=== PATIENT | male | born 1955 | race Caucasian/White ===

== ENCOUNTER → 2019-07-06 07:13 | Outpatient (CLI) | payer OTHER, SELFPAY ==
[2019-07-06 08:40] LABS: Hematocrit 41.5 % (41-53); Hemoglobin 14.1 g/dL (13.5-17.5); Mean Corpuscular Hemoglobin 32.9 PG (26-34); Mean Corpuscular Volume 96.6 fL (80-100); Platelet Count 197 X10^3/uL (150-400); Red Blood Cell Count 4.29 X10^6/uL (4.5-5.9); Red Cell Distribution Width 13.4 % (11.6-14.8); White Blood Cell Count 4.1 X10^3/uL (4.5-11.0)
[2019-07-06 08:59] LABS: Alanine Aminotransferase 31 IU/L (21-72); Albumin 4.9 g/dL (3.5-5.0); Albumin Globulin Ratio 1.7 (1.0-2.8); Alkaline Phosphatase 56 U/L (38-126); Aspartate Aminotransferase 41 IU/L (17-59); BUN Creatinine Ratio 21.1 (6-22); Bilirubin Total 0.9 mg/dL (0.2-1.3); Blood Urea Nitrogen 19 mg/dL (9-20); Carbon Dioxide 32 mmol/L (22-32); Chloride 94 mmol/L (98-107); Cholesterol 208 mg/dL (140-199); Estimated Glomerular Filt Rate > 60.0 mL/min (>60); Globulin 2.9 g/dL (1.7-4.1); Glucose 95 mg/dL (80-110); HDL Cholesterol 97 mg/dL (40-60); HEMOLYSIS < 15 (0-50); LDL Cholesterol Calculated 101 mg/dL (<100); Potassium 3.7 mmol/L (3.4-5.1); Sodium 138 mmol/L (137-145); Total Protein 7.8 g/dL (6.3-8.2); Triglycerides 49 mg/dL (35-150)
[2019-07-06 09:00] LABS: Neutrophils Absolute Manual 1722 /uL (3000-5900); RBC Morphology Normal Morphology; Total Cells Counted 100
[2019-07-06 09:30] LABS: TSH w/ Reflex to FT4 4.94 uIU/mL (0.47-4.68)
[2019-07-06 10:34] LABS: Free T4, Direct Thyroxine 0.97 ng/dL (0.78-2.19)
[2019-07-06 12:08] LABS: Creatinine Urine Random 83.2 mg/dL
[2019-07-06 12:10] LABS: Microalbumi Creatinin Ratio Ur 7.2 ug/mg CR (<30); Microalbumin Urine Random < 0.6 mg/dL (0-1.6)
== END ==
PROVIDERS: PCP Nurse Practitioner; Visit Provider Nurse Practitioner
DX: E78.00 Pure hypercholesterolemia, unspecified (principal); I10 Essential (primary) hypertension
CPT/HCPCS: 36415; 80053; 80061; 82043; 82570; 84153; 84439; 84443; 85025

== ENCOUNTER 2019-10-11 15:15 | Emergency (ER) | payer OTHER, SELFPAY ==
[2019-10-11 15:18] VITALS: BP 191/95; PULSE 68; RESP 20; TEMP 36.8; O2SAT 100
--- NOTE | 2019-10-11 19:18 | ED_ITS ---
HPI - Extremity Problem General Chief complaint: Extremity Problem,Nontraumatic Stated complaint: Swollen Right Knee, Suspected Staph Infection Time Seen by Provider: 10/11/19 17:26 Source: patient Mode of arrival: Ambulatory History of Present Illness HPI Narrative: The patient is a 63-year-old male who was sent to the emergency department by Dr. delcid because he was concerned that the patient had a septic right knee. The patient came to the emergency department and did not have a fall or injury. He has had a chronic rash and ulcers on his medial left leg with a yellow crusty discharge. The patient was questionably in [place] or [facility] and at the urging of a nonmedical friend started taking amoxicillin. He states that he has been working on a boat and kneeling doing multiple repairs when he developed swelling in the area of the right anterior patella. The patient was able to ambulate without difficulty and the knee. He denies any fever chills or sweats. He has had no chest pain cough shortness of breath difficulty in breathing nausea vomiting or diarrhea. He states that he wrapped his right knee with an Adebayo wrap and the swelling actually got worse. Related Data Home Medications Medication Instructions Recorded Confirmed potassium gluconate 550 mg (90 mg) 550 mg PO DAILY 07/07/19 07/07/19 tablet amlodipine [Norvasc] 5 mg PO DAILY 10/11/19 10/11/19 chlorthalidone 25 mg PO DAILY 10/11/19 10/11/19 lisinopril 40 mg PO DAILY 10/11/19 10/11/19 Previous Rx's Medication Instructions Recorded cephalexin 500 mg PO QID #30 tab 10/11/19 ibuprofen 600 mg PO QID PRN #30 tab 10/11/19 mupirocin calcium 1 applictn TOP BID #15 gram 10/11/19 sulfamethoxazole-trimethoprim 1 tab PO BID #14 tab 10/11/19 Allergies Allergy/AdvReac Type Severity Reaction Status Date / Time No Known Allergies Allergy Uncoded 07/07/19 09:39 Review of Systems Review of Systems Narrative: All review of systems were negative except for those mentioned in the history of present illness. Patient History Medical History Hearing loss (Chronic) Hypertension (Chronic) Lymphoma (Chronic ~2010) Vertigo (Chronic ~2017) Vision disorder (Chronic) Surgical History Anesthesia (Resolved) History of hernia repair (Resolved ~2010) Surgical procedure planned (Resolved ~2010) Family History Father Dementia History of heart disease Stroke Mother Hypertension Social History Smoking Status: Former smoker Smoking Status: Former smoker alcohol intake frequency: 3 or more drinks per day Exam Narrative Exam Narrative: PHYSICAL EXAM: CONSTITUTIONAL: Awake, Alert, Oriented, Coherent, Cooperative in NAD. Does not appear toxic or ill. HEAD: AT/NC EENT: PERRL, FROM of eyes, no discharge, no nystagmus SPINE: No gross deformity, no palpable tenderness of the cervical, thoracic, lumbar or sacral spine. No CVA tenderness. THORAX: No deformity, retractions, chest wall tenderness, subcutaneous air or crepitice. LUNGS: Clear with symmetrical breath sounds without respiratory distress HEART: Normal heart tones, regular rhythm and rate without murmur. ABDOMEN: Soft, non-tender, normal bowel sounds without guarding, rebound, rigidity or palpable mass or organomegaly. EXTREMITIES: The patient has full flexion of he has right knee. There is no tenderness to palpation over the medial or lateral joint line or popliteal fossa. The patient has a swelling of the patellar bursa with minimal erythema without warmth or tenderness. Over the medial left leg the patient has some very shallow ulcers with yellow brownish crusting consistent with impetigo. SKIN: No rash, bruising, petechiae or purpura. NEURO: Awake, alert, oriented, conversive, cranial nerves II-XII are symmetrical and normal, moves all 4 extremities and is ambulatory Initial Vital Signs Initial Vital Signs: Vital Signs Temperature 98.2 F 10/11/19 15:18 Pulse Rate 68 10/11/19 15:18 Respiratory Rate 20 10/11/19 15:18 Blood Pressure 191/95 H 10/11/19 15:18 Pulse Oximetry 100 10/11/19 15:18 Course Course Course Narrative: The patient has a patellar bursitis which got worse wrapping it with an Adebayo wrap. The erythema is mild and is not warm hot and tender. The patient was treated as though he has a right patellar bursitis. It is unknown if he really did have a an infection and how much it was treated with 3 days of amoxicillin. Consequently the patient was placed on Keflex 500 mg q.i.d. and Bactrim double strength since he has a history of impetigo on the other leg. He was given a prescription for mupirocin cream to apply 2-3 times over the rash on the left leg. He was given a prescription for ibuprofen. There were no need for any x-rays of the knee because he had full flexion extension and was able to ambulate without difficulty. He has had no fever chills or sweats. Vital Signs Vital signs: Vital Signs - 8 hr 10/11/19 15:18 Temperature 98.2 F Pulse Rate 68 Respiratory Rate 20 Blood Pressure 191/95 H Pulse Oximetry 100 Discharge Plan Departure Patient Disposition: Home Clinical Impression: Bursitis of right patella, Impetigo Discharge Date/Time: 10/11/19 18:00 Instructions: DI for Bursitis, DI for Impetigo Activity Restrictions/Additional Instructions: Look up patellar bursitis, milk made the knees and impetigo on the Internet. Do not wrap the knee with an Adebayo wrap for put pressure on the knee. The swelling will probably last for 3-4 weeks. If it becomes red like a piece of beef hot and exquisitely tender you needs to be re-examined. You have developed a protective collection of fluid on your knee from working in kneeling on your knees. Since you started amoxicillin 4 days ago you need to take the antibiotics, Keflex 500 mg 4 times a day and Bactrim 500 mg b.i.d. for the next 7 days. You can apply mupirocin cream to the shallow ulcers and skin breakdown topically 2 to 3 times a day to the left leg. Follow-up and be recheck by your family physician in 3-4 days. For any pain and discomfort you can use ibuprofen 600 mg every 6 hours. Prescriptions: New mupirocin calcium 2 % cream 1 applictn TOP BID Qty: 15 RF: 0 ibuprofen 600 mg tablet 600 mg PO QID PRN (Reason: pain) Qty: 30 RF: 0 cephalexin 500 mg tablet 500 mg PO QID Qty: 30 RF: 0 sulfamethoxazole-trimethoprim 800-160 mg tablet 1 tab PO BID Qty: 14 RF: 0 No Action potassium gluconate 550 mg (90 mg) tablet 550 mg PO DAILY RF: 0 lisinopril 20 mg tablet 40 mg PO DAILY RF: 0 chlorthalidone 25 mg tablet 25 mg PO DAILY RF: 0 amlodipine [Norvasc] 5 mg tablet 5 mg PO DAILY RF: 0 Referrals: Britta Delcid ARNP [Primary Care Provider] -
== END 2019-10-11 18:00 | disposition home or self-care (01) ==
PROVIDERS: Emergency Provider Emergency Medicine; PCP Nurse Practitioner
DX: M70.51 Other bursitis of knee, right knee (principal); L01.00 Impetigo, unspecified
CPT/HCPCS: 99281; 99283

== ENCOUNTER → 2020-05-23 09:37 | Outpatient (CLI) | payer OTHER, SELFPAY ==
--- NOTE | 2020-05-23 09:39 | DI.RAD.S_ITS ---
PROCEDURE: XR CHEST 2V INDICATIONS: Hodgkin's disease TECHNIQUE: 2 views of the chest were acquired. COMPARISON: [facility], CHEST 2 VIEW, 05/20/2012, 15:41. [facility], CHEST 2 VIEW, 12/26/2017, 13:16. FINDINGS: Surgical changes and devices: None. No acute consolidation. Ill-defined subcentimeter nodular opacities projecting in the left lung base, indeterminate although slightly more conspicuous since the prior study. No pleural effusions or pneumothorax. Mediastinum: Mediastinal contours are normal. Heart size is normal. Bones and chest wall: No suspicious bony abnormalities. Soft tissues appear unremarkable. IMPRESSION: No acute consolidation Vague subcentimeter nodular opacities projecting the left lung base which are indeterminate. If clinically warranted, this could be followed up with short interval chest radiographs or CT to exclude early pulmonary nodules, depending on clinical suspicion Dictated by: Abran Man M.D. on 05/23/2020 at 11:24 Approved by: Abran Man M.D. on 05/23/2020 at 11:27
--- NOTE | 2020-05-23 09:39 | DI.US.S_ITS ---
PROCEDURE: US SCROTUM INDICATIONS: Right Hydrocele TECHNIQUE: Real-time scanning was performed of the scrotum and testicles, with image documentation. Color and pulse Doppler interrogation was performed of both testicles. COMPARISON: None. FINDINGS: Right: Testicle is normal in size at 4.5 x 2.4 x 3.5 cm, and homogenous in echotexture. Epididymis is normal in overall size and morphology. Moderate hydrocele. No varicocele. Overlying scrotal skin is normal in thickness. Left: Testicle is normal in size at 4.1 x 2.3 x 3.3 cm, and homogeneous in echotexture. Epididymis is normal in overall size and morphology. 2 epididymal cysts, largest measuring up to 2.1 cm. Moderate hydrocele. No varicocele. Overlying scrotal skin is normal in thickness. Doppler: Color and pulse Doppler demonstrate normal and symmetric arterial flow in both testicles. IMPRESSION: 1. Normal appearance of the testicles bilaterally. 2. Moderate bilateral hydroceles. 3. Left epididymal cysts. Dictated by: Manuel Lindquist [facility] Interpreted: Micheline Cabral MD on 05/23/2020 at 11:08 Approved by: Micheline Cabral M.D. on 05/23/2020 at 12:43
== END ==
PROVIDERS: PCP Internal Medicine; Referring Provider Internal Medicine; Visit Provider Internal Medicine
DX: C81.90 Hodgkin lymphoma, unspecified, unspecified site (principal); N43.3 Hydrocele, unspecified; N50.3 Cyst of epididymis
CPT/HCPCS: 71046; 76870

== ENCOUNTER → 2020-07-14 10:14 | Outpatient (CLI) | payer OTHER, SELFPAY ==
[2020-07-14 11:59] LABS: Erythrocyte Sedimentation Rate 4 MM/HR (0-15)
[2020-07-14 12:16] LABS: Alanine Aminotransferase 18 IU/L (<50); Albumin 4.3 g/dL (3.5-5.0); Albumin Globulin Ratio 1.4 (1.0-2.8); Alkaline Phosphatase 69 U/L (38-126); Aspartate Aminotransferase 26 IU/L (17-59); BUN Creatinine Ratio 16.3 (6-22); Bilirubin Total 1.1 mg/dL (0.2-1.3); Blood Urea Nitrogen 15 mg/dL (9-20); Calcium 9.9 mg/dL (8.4-10.2); Carbon Dioxide 32 mmol/L (22-32); Chloride 100 mmol/L (98-107); Cholesterol 175 mg/dL (140-199); Estimated Glomerular Filt Rate > 60.0 mL/min (>60); Glucose 109 mg/dL (80-110); HDL Cholesterol 88 mg/dL (40-60); LDL Cholesterol Calculated 76 mg/dL (<100); Potassium 4.3 mmol/L (3.4-5.1); Sodium 137 mmol/L (137-145); Total Protein 7.3 g/dL (6.3-8.2); Triglycerides 56 mg/dL (35-150)
[2020-07-14 12:24] LABS: C-Reactive Protein Quant < 0.5 mg/dL (<1.0)
[2020-07-14 12:46] LABS: HEMOLYSIS < 15 (0-50); Prostate Specific Antigen Scrn 0.555 ng/mL (0.1-4.0)
== END ==
PROVIDERS: PCP Internal Medicine; Referring Provider Internal Medicine; Visit Provider Internal Medicine
DX: C81.90 Hodgkin lymphoma, unspecified, unspecified site (principal); E78.00 Pure hypercholesterolemia, unspecified; I10 Essential (primary) hypertension; R73.9 Hyperglycemia, unspecified; Z12.5 Encounter for screening for malignant neoplasm of prostate
CPT/HCPCS: 36415; 80053; 80061; 85651; 86140; G0103

== ENCOUNTER → 2020-08-23 09:42 | Outpatient (CLI) | payer OTHER, SELFPAY ==
[2020-08-23 10:43] LABS: COVID19 -Nasal RAPID Negative (Negative)
== END ==
PROVIDERS: PCP Internal Medicine; Visit Provider Specialist
DX: Z01.812 Encounter for preprocedural laboratory examination (principal); Z20.828 Contact with and (suspected) exposure to other viral communicable diseases
CPT/HCPCS: 87635; C9803

== ENCOUNTER 2020-08-25 06:40 | Day surgery (SDC) | payer OTHER, SELFPAY ==
[2020-08-23 08:27] VITALS: BMI 27.6
[2020-08-25] VITALS (7 sets, daily range): BP systolic 161–196; BP diastolic 90–98; PULSE 77–94; RESP 10–16; TEMP 36.3–37; O2SAT 96–99; BMI 28.0
[2020-08-25] MEDS: LACTATED RINGERS 1,000 ML 42 ML IV (07:22)
--- NOTE | 2020-08-25 07:38 | PM.PREOP ---
Pre-operative Note Interval Note History & Physical reviewed/Exam performed by Physician: Yes Changes to H&P: No
[2020-08-25] MEDS: CEFAZOLIN 2 GM/100 ML FROZ.PIGGY IV (07:54)
--- NOTE | 2020-08-25 08:18 | SUR.OPER ---
Supine on padded OR bed, head on pillow, arms secured on padded arm boards at <90 degrees abduction, legs uncrossed, safety belt at thigh, tape over blanket over lower legs.
[2020-08-25] MEDS: BUPIVACAINE LIPOSOME 266 MG/20 ML VIAL INJ (08:26)
[2020-08-25] MEDS: SODIUM CHLORIDE 0.9% FLUSH 10 ML IV (08:26)
[2020-08-25] MEDS: NEOMYCIN/POLYMYXIN/BACITRA UD OINT 1 EACH TOP (08:38)
--- NOTE | 2020-08-25 09:02 | PM.OP.1 ---
Operative Date/Time/Diagnoses Date of procedure: 08/25/20 Time of procedure: 09:02 Pre-op diagnosis: Right hydrocele Post-op diagnosis: same Procedure & Clinicians Procedure: Right hydrocelectomy Same procedure as scheduled: Yes Indications: Right hydrocele Surgeon: Katty Millan Click Yes if Unassisted: Yes Anesthesia Type: General and Local (1.33% Exparel) Operative Notes Findings: 1. Normal scrotal wall tissue planes. 2. Simple hydrocele sac with randy/straw colored fluid. 3. A small scrotal zach was removed. Closure Type: primary Specimen(s): none sent Applied: other (Ten Ecu[place] fenestrated scrotal drain) Estimated Blood Loss (mL): 2 Blood products transfused: none Tourniquet time (min): 0 Procedure in detail: The patient was positioned supine was administered general anesthesia. The lower abdomen, genitalia, and groin were then prepped and draped in sterile fashion. Local anesthetic was used to infiltrate the midline scrotal Fe. The needlepoint cautery was then used to create an incision in the midline scrotal raphae through the skin and subcutaneous dartos fascia to the level of the tunica vaginalis. The appropriate plane was then developed on the surfaces tunica vaginalis in the entire structure was delivered from the right hemiscrotum. The tunica vaginalis was then divided longitudinally in the midline anteriorly. The fluid contents and per were then removed. The edges of the tunica vaginalis were then reflected posteriorly (books salesperson). Using 2 0 Monocryl, a running horizontal mattress reapproximation of the tunica vaginalis posteriorly was accomplished. Additional stay suture inferiorly and superiorly were were placed against the posterior scrotal wall for anatomic repositioned the testis and cord. The cord was then infiltrated with local anesthetic. A site inferior and lateral in the right hemiscrotum was also infiltrated local anesthetic. Through this a 10 Ecuadorean Kerwin drain was positioned appropriately and was secured at the level of skin with a 2-0 silk suture. The distal tip was trimmed to appropriate length and positioned appropriately within the right hemiscrotum. Next, local anesthetic was used to infiltrate the dartos fascia of the midline incision. A dartos fascia was then closed with a running vertical mattress of 2-0 Monocryl. The skin edges were then reapproximated using a running horizontal mattress of 4-0 Monocryl. Antibiotic ointment was applied to the incision line and dry fluffs applied over that. The patient was then fitted with a athletic supporter and the drain was placed to bulb self suction. The patient was then awakened, transferred to [facility], and transferred recovery room in stable condition. Complications: none Post-operative Condition: stable Disposition: PACU Plan for aftercare: Discharge home
[2020-08-25] MEDS: OXYCODONE/ACETAMINOPHEN 5/325 TABLET 1 TAB PO (09:31)
[2020-08-25] MEDS: ONDANSETRON 4 MG/2 ML INJ IV (09:31)
--- NOTE | 2020-08-25 11:23 | SUR.PHASEII ---
Discharge instructions provided to pt and his re surgery as well as care of jesika drain, recording output and emptying drain. Pt was able to urinate prior to d/c. Left with all his belongings. Rx sent to pharmacy and to [facility]. to car with in w/c with RN escort.
== END 2020-08-25 10:55 | disposition home or self-care (01) ==
PROVIDERS: PCP Internal Medicine; Referring Provider Internal Medicine; Visit Provider Specialist
PROC: (CPT 55040; principal; 2020-08-25 07:45)
DX: N43.3 Hydrocele, unspecified (principal); I10 Essential (primary) hypertension
CPT/HCPCS: 55040; C9290; J0690; J1100; J2250; J2405; J2704; J3010

== ENCOUNTER → 2020-11-28 11:11 | Outpatient (CLI) | payer OTHER, SELFPAY ==
[2020-11-28 12:26] LABS: BUN Creatinine Ratio 18.6 (6-22); Blood Urea Nitrogen 18 mg/dL (9-20); Carbon Dioxide 32 mmol/L (22-32); Chloride 96 mmol/L (98-107); Estimated Glomerular Filt Rate > 60.0 mL/min (>60); Glucose 108 mg/dL (80-110); HEMOLYSIS < 15 (0-50); Magnesium 2.1 mg/dL (1.6-2.3); Potassium 3.4 mmol/L (3.4-5.1); Sodium 134 mmol/L (137-145)
== END ==
PROVIDERS: PCP Internal Medicine; Referring Provider Internal Medicine; Visit Provider Internal Medicine
DX: I10 Essential (primary) hypertension (principal)
CPT/HCPCS: 36415; 80048; 83735

== ENCOUNTER → 2021-01-02 14:38 | Outpatient (CLI) | payer OTHER, SELFPAY ==
--- NOTE | 2021-01-02 14:39 | DI.US.S_ITS ---
PROCEDURE: US SCROTUM INDICATIONS: Hydrocele resected approximately 6 months ago with persistent asymmetric right greater than left prominence of the scrotal dimensions. TECHNIQUE: Real-time scanning was performed of the scrotum and testicles, with image documentation. Color and pulse Doppler interrogation was performed of both testicles. COMPARISON: [facility], , US SCROTUM, 05/23/2020, 10:10. FINDINGS: Right: Testicle is normal in size at 2.2 x 2.6 x 4.4 cm, and homogenous in echotexture. Epididymis is normal in overall size and morphology. No right-sided hydrocele but there is a small right-sided varicocele. Scrotal wall thickness is approximately 6-7 mm, without hyperemia. What appears to be the spermatic cord on the right is mildly prominent. No definite hernia is present as cause of this appearance. Left: Testicle is normal in size at 2.3 by 3.2 by 4.1 cm, and homogeneous in echotexture. Epididymis is normal in overall size and morphology. Small left-sided varicocele and there is a left-sided hydrocele that measures up to 6.6 cm by 3.8 cm. Scrotal wall thickness is approximately 5-6 mm, without hyperemia. As was seen on the right there is a small degree of prominence of the left spermatic cord. No definite hernia extending into the scrotum is seen on the left either.. Doppler: Color and pulse Doppler demonstrate normal and symmetric arterial flow in both testicles. IMPRESSION: No sign of testicular torsion. No hyperemia involving the testicles or epididymis. Reported prior hydrocele resection, and the prior scrotal ultrasound 05/23/20 had identified moderate bilateral hydroceles. The right-sided hydrocele has resolved, a left-sided hydrocele is present measuring up to 6.6 x 3.8 cm. Mild prominence of the spermatic cords bilaterally, right greater than left. Mild edema is the likely cause. No inguinal herniation is found as cause of this appearance. Dictated by: Jose Tavera M.D. on 01/03/2021 at 10:06 Approved by: Jose Tavera M.D. on 01/03/2021 at 10:21
== END ==
PROVIDERS: PCP Internal Medicine; Referring Provider Specialist; Visit Provider Specialist
DX: N43.3 Hydrocele, unspecified (principal)
CPT/HCPCS: 76870

== ENCOUNTER → 2021-01-29 12:35 | Outpatient (CLI) | payer OTHER, SELFPAY ==
[2021-01-29 13:35] LABS: BUN Creatinine Ratio 17.3 (6-22); Blood Urea Nitrogen 18 mg/dL (9-20); Calcium 10.6 mg/dL (8.4-10.2); Carbon Dioxide 30 mmol/L (22-32); Chloride 96 mmol/L (98-107); Estimated Glomerular Filt Rate > 60.0 mL/min (>60); Glucose 105 mg/dL (80-110); HEMOLYSIS < 15 (0-50); Potassium 3.5 mmol/L (3.4-5.1); Sodium 133 mmol/L (137-145)
== END ==
PROVIDERS: PCP Internal Medicine; Referring Provider Specialist; Visit Provider Specialist
DX: N43.3 Hydrocele, unspecified (principal)
CPT/HCPCS: 36415; 80048

== ENCOUNTER → 2021-02-05 07:31 | Outpatient (CLI) | payer OTHER, SELFPAY ==
--- NOTE | 2021-02-05 08:04 | DI.CT.S_ITS ---
PROCEDURE: CT PELVIS W CON INDICATIONS: herina TECHNIQUE: After the administration of oral contrast and intravenous contrast, 5 mm thick sections acquired from the iliac crests to the symphysis. 5 mm thick coronal and sagittal reformats were acquired. For radiation dose reduction, the following was used: automated exposure control, adjustment of mA and/or kV according to patient size. COMPARISON: None. FINDINGS: Image quality: Excellent. Peritoneum and bowel: Contrast enhanced bowel loops demonstrate normal wall thickness and caliber. Occasional sigmoid colon diverticulosis without acute diverticulitis. No free fluid or air. Genitourinary: Bladder wall thickness is normal. 6.6 cm right renal cyst Nodes and vessels: No iliac, pelvic, or inguinal adenopathy. Iliac vessels demonstrate normal size and enhancement. Bones: There is a small bone lesion in the left posterior ilium measuring 2.3 cm with morphology suggesting an enchondroma. Degenerative change at the L5-S1 disc level. Miscellaneous: There is a moderate size, fat containing indirect right inguinal hernia. The diameter of the internal ring is approximately 3.6 cm. The right testicle is medially displaced. There is a small left fat containing inguinal hernia and small left hydrocele. No other visible ventral hernias. IMPRESSION: 1. Moderate-size fat containing right inguinal hernia. No associated changes to suggest incarceration or bowel involvement. 2. Small left fat containing inguinal hernia and small left hydrocele. 3. Other incidental findings described above. Dictated by: Micheline Cabral M.D. on 02/05/2021 at 11:22 Approved by: Micheline Cabral M.D. on 02/05/2021 at 11:28
== END ==
PROVIDERS: PCP Internal Medicine; Referring Provider Specialist; Visit Provider Specialist
DX: N43.3 Hydrocele, unspecified (principal); K40.20 Bilateral inguinal hernia, without obstruction or gangrene, not specified as recurrent
CPT/HCPCS: 72193; Q9967

== ENCOUNTER → 2021-02-23 11:09 | Outpatient (CLI) | payer OTHER, SELFPAY ==
[2021-02-23] MEDS: COVID-19 VACC, Ad26(JANSSEN)/PF 0.5 ML IM (11:17)
== END ==
PROVIDERS: PCP Internal Medicine; Visit Provider Internal Medicine
DX: Z23 Encounter for immunization (principal)
CPT/HCPCS: 0031A; 91303

== ENCOUNTER → 2021-04-16 10:08 | Outpatient (CLI) | payer OTHER, SELFPAY ==
[2021-04-16 12:48] LABS: COVID19 -Nasal RAPID Negative (Negative)
== END ==
PROVIDERS: PCP Internal Medicine; Visit Provider Surgery
DX: Z20.822 Contact with and (suspected) exposure to COVID-19 (principal)
CPT/HCPCS: 87635; C9803

== ENCOUNTER 2021-04-17 06:43 | Day surgery (SDC) | payer OTHER, SELFPAY ==
[2021-04-11 10:32] VITALS: BMI 29.0
[2021-04-17] VITALS (13 sets, daily range): BP systolic 115–157; BP diastolic 55–84; PULSE 83–99; RESP 14–18; TEMP 36.2–36.7; O2SAT 91–100; BMI 30.2; BMI 29.7
[2021-04-17] MEDS: LACTATED RINGERS 1,000 ML 100 ML IV ×2 (07:14→09:12)
[2021-04-17] MEDS: ACETAMINOPHEN 325 MG TABLET 975 MG PO (07:27)
[2021-04-17] MEDS: GABAPENTIN 300 MG CAPSULE PO (07:28)
--- NOTE | 2021-04-17 07:30 | PM.PREOP ---
Pre-operative Note Interval Note History & Physical reviewed/Exam performed by Physician: Yes Changes to H&P: No
[2021-04-17] MEDS: CEFAZOLIN 1 GM VIAL 2 GM IV (08:00)
--- NOTE | 2021-04-17 08:07 | SUR.OPER ---
Supine on padded OR bed, head on pillow, arms secured on padded arm boards at <90 degrees abduction, legs uncrossed, gel pad under heels, safety belt at thigh, tape over blanket over lower legs.
[2021-04-17] MEDS: BUPIVACAINE 0.25% (PF) VIAL 30 ML INJ (08:15)
[2021-04-17] MEDS: OXYCODONE IR 5 MG TABLET PO ×2 (10:34→11:10)
--- NOTE | 2021-04-17 10:40 | SUR.PHASEI ---
Assumed care of pt from Madina Roth RN.
--- NOTE | 2021-04-17 11:19 | PM.OP.1 ---
Operative Date/Time/Diagnoses Date of procedure: 04/17/21 Time of procedure: 11:19 Pre-op diagnosis: Bilateral inguinal hernia Post-op diagnosis: same Procedure & Clinicians Procedure: Open bilateral inguinal hernia with mesh Same procedure as scheduled: Yes Indications: Reducible bilateral inguinal hernia Surgeon: Jasiel Mae Operative Notes Findings: Right-direct floor defect and large indirect hernia with intestinal content extending into the scrotum Left-direct floor defect, small indirect hernia containing omentum Specimen(s): none sent Estimated Blood Loss (mL): 40 Procedure in detail: The patient was placed supine on the table and bilateral lower extremity compression devices were applied. Anesthesia was induced they were intubated with an LMA and received 2g of Ancef. A time-out was performed. They were prepped and draped in sterile fashion. The right external inguinal ring and the anterior superior iliac crest were identified and marked. 1 finger breath above the inguinal ligament the skin was infiltrated with 0.25% bupivacaine. The skin incision was made here and the subcutaneous tissues were divided with electrocautery exposing the external oblique aponeurosis which was then opened along the direction of its fibers. Using blunt dissection the internal oblique aporneurosis was from the external oblique upper leaflet. The cord was carefully dissected away from the inguinal canal adjacent to the pubic tubercle. The cord including the vas deferens, testicular bloody supply, ilioguinal and genital nerve were encircled with a [place] drain. A direct floor defect was identified and it was reduced into the abdomen and the internal oblique aporneuorsis was approximated to the inguinal ligament with Ethibond suture to reapproximate the floor. The cremasteric fibers surrounding the cord were divided using electrocautery adjacent to the internal ring.. The vas deferens and the testicular vessels were preserved and protected. There was a large indirect hernia which was skeletonized away from the vas deferens and testicular blood supply. The indirect hernia sac was opened contained omentum and viable small bowel. The hernia sac was closed with vicryl suture and reduced back into the abdomen. A plug of mesh was placed into the internal ring and suture to the fascia. I selected a 7x 15 cm lightweight Pro Loop hernia mesh. The inferior medial aspect of the mesh was anchored to insertion of the rectus muscle to the pubic tubercle such that there was approximately 2 cm of tubercle overlap with Ethibond and then was run continuously along the inferior edge of the mesh to the shelving edge of the inguinal ligament. Interrupted 3 0 Vicryl suture was used to anchor the superior aspect of the mesh to the conjoined tendon in several places. The tails were then reapproximated loosely around the spermatic cord. The tails of the mesh were then tucked under the external oblique aponeurosis. The repair was checked for hemostasis. The wound was irrigated with sterile saline. The external oblique aponeurosis was reapproximated in a running fashion using 3 0 Vicryl. The subcutaneous tissues were reapproximated with 3 0 Vicryl skin closed with 4 0 Monocryl followed by the application of Dermabond. The left side was then approached in the same fashion. On the left, both a direct floor defect and a small indirect hernia containing only omentum was found. At the end of the operation I ensured that both testicles were within the scrotum. The sponge instrument count at the end operation was correct. The patient emerged from anesthesia was extubated and transferred to the postoperative care unit in stable condition. A total of 30 ml of of 0.25% bupivicaine was used to infiltrate the skin. Complications: none Post-operative Condition: stable Disposition: same day surgery
--- NOTE | 2021-04-17 12:02 | SUR.PHASEII ---
1140 Patient dressed, tolerating po intake, pain level improving, sites CDI. Attempted to stand at bedside to transfer to wheelchair. Legs weak and unable to support his weight. Patient returned to the bed and called to postpone pickup. Otherwise stable. Will reassess patient for LE stability after a period of time.
--- NOTE | 2021-04-17 12:36 | SUR.PHASEII ---
1230 Attempted to stand at the bedside, knees buckled. Patient returned to bed with call light available. States that he feels like he has vertigo. Circulating nurse informed and was asked to share this with Dr. Mae.
--- NOTE | 2021-04-17 13:06 | SUR.PHASEII ---
Addendum entered by Sofia Landon R.N. 04/17/21 17:13: after holding pt for several hours, pt is still showing signs of instability on the RLE. Transfer is pending to room 227 for observation. Addendum entered by Sofia Landon R.N. 04/17/21 13:48: Pt up to side of bed with the aid of walker. Some increase in mobility to R knee and leg, but still unstable as pt tried to move to sit and almost missed the gurney. He was assisted back to bed and encourged to continue knee bending and ankle waving to BLE Original Note: Pt stood at the bedside with the use of a walker. He was able to march in place while being stabilized with the walker. Pt reports R leg weaker than the L at the knee only. States thighs and toes both have feeling. Continue to monitor. Encouraged knee bending and ankle waves while in bed.
--- NOTE | 2021-04-17 19:47 | PC.NURSE ---
Admit Note Pt arrived to room 227 at 1750 via wheelchair, SBA with FWW to bed. Numbness persisting to right side, right leg still buckling when pt attempts to put weight on it. Per Dr. Mae, pt can discharge home if numbness/buckling resolves (call MD to receive D/C orders). Pt denies pain. Declines IV access at this time, I'm hoping to go home later and don't want to be poked again. Incision sites D/I, steri-strips in place. Ice in place over incisions per pt request. Oriented to room and to call light/bed/tv controls. Belongings at bedside including cell phone and clothing. Declines to lock up any valuables.
[2021-04-18] MEDS: ACETAMINOPHEN 325 MG TABLET 650 MG PO (01:43)
[2021-04-18] MEDS: OXYCODONE IR 5 MG TABLET PO ×2 (01:44→08:08)
[2021-04-18 02:01] VITALS: BP 146/83; PULSE 92; RESP 18; TEMP 36.4; O2SAT 97
[2021-04-18 08:00] VITALS: BP 139/82; PULSE 88; RESP 17; TEMP 36.4; O2SAT 99
--- NOTE | 2021-04-18 09:42 | PC.NURSE ---
Provided written and verbal instruction/education regarding post op care, medications, s/s of infection, when to seek emergency medical treatment, wound care, activity limitations. Instructed pt to keep f/u appt as scheduled and provided him with date/time. Reviewed med regimen including next dose due and instructed pt that his Rx was electronically sent to [facility]. Pt declined to take his amlodipine prior to discharge stating he will take when he gets home. Pain was well controlled on PO oxycodone at time of discharge. Pt was able to dress himself independently and walk in the room without need for AD. Pt was escorted to POV via w/c by [employer] with all belongings.
--- NOTE | 2021-04-18 11:46 | CM.DANOTE ---
DCP: Case received, EMR reviewed and met with patient. Introduced self and role. Was able to obtain information from patient regarding his baseline activity status prior to hospitalization. DCP assessment completed with information currently available. Patient is a 65 year old male who admitted yesterday morning to the care of the surgical team. PCP: Dr. Ridley. Payer: confirmed: [employer]. Patient came to the hospital via private vehicle for a surgical procedure. He had open bilateral inguinal hernia repair. Met with patient in his room. He is alert and oriented. Confirmed that he is independent, and resides with his here [facility]. He is retired, and confirmed that Dr. Ridley is his primary provider. P: Patient is discharging home today with no needs. Ciara Myers RN/Specification Writer
== END 2021-04-18 09:30 | disposition home or self-care (01) ==
LOC: OR 17:51 → ICU 17:52
PROVIDERS: PCP Internal Medicine; Referring Provider Surgery; Visit Provider Surgery
PROC: (CPT 49505; principal; 2021-04-17 07:45)
DX: K40.20 Bilateral inguinal hernia, without obstruction or gangrene, not specified as recurrent (principal); I10 Essential (primary) hypertension; N43.3 Hydrocele, unspecified
CPT/HCPCS: 49505; 82962; C1781; J0690

== ENCOUNTER → 2021-08-22 15:08 | Outpatient (CLI) | payer OTHER, SELFPAY ==
[2021-05-17 09:16] VITALS: BMI 29.7
[2021-08-22 15:52] LABS: Urine Drug scr, USCG NIDA See Separate Report
== END ==
PROVIDERS: PCP Internal Medicine; Referring Provider Internal Medicine; Visit Provider Internal Medicine
DX: Z02.89 Encounter for other administrative examinations (principal)
CPT/HCPCS: 81099

== ENCOUNTER → 2022-04-15 14:57 | Outpatient (CLI) | payer OTHER, SELFPAY ==
[2021-05-17 09:16] VITALS: BMI 29.7
[2022-04-15 15:53] LABS: Cholesterol 180 mg/dL (140-199); HDL Cholesterol 74 mg/dL (40-60); LDL Cholesterol Calculated 84 mg/dL (<100); Triglycerides 109 mg/dL (35-150)
[2022-04-15 16:21] LABS: Prostate Specific Antigen Scrn 0.962 ng/mL (0.1-4.0)
== END ==
PROVIDERS: PCP Internal Medicine; Referring Provider Internal Medicine; Visit Provider Internal Medicine
DX: E78.00 Pure hypercholesterolemia, unspecified (principal); I10 Essential (primary) hypertension; Z12.5 Encounter for screening for malignant neoplasm of prostate
CPT/HCPCS: 36415; 80061; G0103

== ENCOUNTER → 2022-05-03 11:28 | Outpatient (CLI) | payer OTHER, SELFPAY ==
[2021-05-17 09:16] VITALS: BMI 29.7
== END ==
PROVIDERS: PCP Internal Medicine; Referring Provider Internal Medicine; Visit Provider Internal Medicine
DX: R06.02 Shortness of breath (principal); Z20.822 Contact with and (suspected) exposure to COVID-19
CPT/HCPCS: 87635; C9803

== ENCOUNTER → 2023-04-22 16:24 | Outpatient (CLI) | payer MEDICARE, OTHER, SELFPAY ==
[2023-04-22 15:59] VITALS: BMI 29.7
--- NOTE | 2023-04-22 16:35 | DI.RAD.S_ITS ---
PROCEDURE: XR KNEE LT 3V INDICATIONS: knee pain TECHNIQUE 3 views of the knee were acquired. COMPARISON: None. FINDINGS: Bones: Moderate medial and mild lateral and patellofemoral compartment osteoarthritis. No fractures or dislocations. No suspicious bony lesions. Soft tissues: No joint effusion. No suspicious soft tissue calcifications. IMPRESSION: Tricompartmental osteoarthritis, moderate in the medial compartment and mild in the lateral patellofemoral compartments. No acute osseous abnormality. If symptoms persist with conservative management, consider cross-sectional imaging such as CT or MRI. Approved by: Lesly Storey M.D. on 04/23/2023 at 17:16
--- NOTE | 2023-04-22 16:35 | DI.RAD.S_ITS ---
PROCEDURE: XR CHEST 2V INDICATIONS: dyspnea/hodgkins lymphoma TECHNIQUE: 2 views of the chest were acquired. COMPARISON: [facility], CR, XR CHEST 2V, 05/23/2020, 10:27. FINDINGS: Surgical changes and devices: None. Lungs and pleura: Lungs are clear. No pleural effusions or pneumothorax. Mediastinum: Mediastinal contours are normal. Heart size is normal. Bones and chest wall: No suspicious bony abnormalities. Soft tissues appear unremarkable. IMPRESSION: No acute process. Dictated by: Chacha Aragon M.D. on 04/23/2023 at 13:12 Approved by: Chacha Aragon M.D. on 04/23/2023 at 13:13
== END ==
PROVIDERS: PCP Internal Medicine; Referring Provider Internal Medicine; Visit Provider Internal Medicine
DX: C81.90 Hodgkin lymphoma, unspecified, unspecified site (principal); R06.00 Dyspnea, unspecified; M17.12 Unilateral primary osteoarthritis, left knee; M25.569 Pain in unspecified knee
CPT/HCPCS: 71046; 73562

== ENCOUNTER → 2023-05-02 08:16 | Outpatient (CLI) | payer MEDICARE, OTHER, SELFPAY ==
[2023-04-22 15:59] VITALS: BMI 29.7
== END ==
PROVIDERS: PCP Internal Medicine; Referring Provider Internal Medicine; Visit Provider Internal Medicine
DX: R06.02 Shortness of breath (principal); Z87.891 Personal history of nicotine dependence; J98.8 Other specified respiratory disorders
CPT/HCPCS: 94060; 94726; 94729

== ENCOUNTER → 2023-05-12 07:44 | Outpatient (CLI) | payer MEDICARE, OTHER, SELFPAY ==
[2023-04-22 15:59] VITALS: BMI 29.7
--- NOTE | 2023-05-14 09:31 | DI.NM.S_ITS ---
DATE OF SERVICE: 05/12/2023 PROCEDURE: Exercise treadmill stress test without imaging. ORDERING PROVIDER: Dr. Anand Ridley. INDICATIONS: The patient is a 67-year-old male with exertional dyspnea and family history of heart disease. FINDINGS: 1. The patient was able to exercise for 7 minutes and 54 seconds on a standard Robert protocol suggesting good exercise capacity with an ANY of -7%, achieving 8.8 METS. 2. He had a normal heart rate response to exercise with a resting heart rate of 96 BPM and increasing to a maximum of 166 BPM (108% of his predicted maximum). He had a hypertensive blood pressure response with a resting blood pressure of 140/82, increasing to a maximum of 220/120. 3. He had no chest discomfort, but reported mild dizziness at 3 minutes 20 seconds of exercise at a heart rate of 123 bpm and a blood pressure of 170/90. His symptoms resolved with further stress. 4. His resting ECG showed sinus rhythm with left axis deviation and probable incomplete RBBB but normal ST segments. With stress, there were no significant ST-segment shifts. He had rare PVCs, rarely in couplets, but no other arrhythmias. IMPRESSION: 1. Normal exercise treadmill stress test for ischemia. 2. Good exercise capacity without angina but mild dizziness despite normal hemodynamic parameters. 3. He had a significant hypertensive blood pressure response with a maximum blood pressure of 220/120. 4. He had occasional PVCs, rarely in couplets, with stress but no other complex ectopy. Jhoan Solano - ROSA/pina/JEANNIE doc#: [id number]/job#: [id number] dd: 05/12/2023 17:29:00 dt: 05/13/2023 00:33:00 DICTATING MD/COPIES TO: Zachariah Townsend MD; Anand Ridley MD COPIES MNE: CHRISTIANNE;
== END ==
PROVIDERS: PCP Internal Medicine; Referring Provider Internal Medicine; Visit Provider Internal Medicine
DX: R06.00 Dyspnea, unspecified (principal)
CPT/HCPCS: 93017

== ENCOUNTER → 2023-05-21 09:20 | Outpatient (CLI) | payer MEDICARE, OTHER, SELFPAY ==
[2023-04-22 15:59] VITALS: BMI 29.7
[2023-05-21 11:12] LABS: Add Manual Diff / Slide Review NO; Basophils Absolute Auto 0 /uL (0-100); Basophils Percent Auto 0.6 % (0-2); Eosinophils Absolute Auto 0 /uL (0-450); Hematocrit 41.4 % (41-53); Hemoglobin 14.2 g/dL (13.5-17.5); Lymphocytes Absolute Auto 1500 /uL (1100-4500); Lymphocytes Percent Auto 29.9 % (25-40); Mean Corpuscular HGB Conc 34.4 % (30-36); Mean Corpuscular Hemoglobin 32.9 PG (26-34); Mean Corpuscular Volume 95.8 fL (80-100); Monocytes Absolute Auto 600 /uL (0-900); Monocytes Percent Auto 12.5 % (3-14); Neutrophils Absolute Auto 2800 /uL (1500-7000); Platelet Count 260 X10^3/uL (150-400); Red Blood Cell Count 4.32 X10^6/uL (4.5-5.9); Red Cell Distribution Width 13.4 % (11.6-14.8); White Blood Cell Count 4.9 X10^3/uL (4.5-11.0)
[2023-05-21 11:29] LABS: Erythrocyte Sedimentation Rate 6 MM/HR (0-15)
[2023-05-21 11:36] LABS: Alanine Aminotransferase 22 IU/L (<50); Albumin 4.4 g/dL (3.5-5.0); Albumin Globulin Ratio 1.4 (1.0-2.8); Alkaline Phosphatase 67 U/L (38-126); Aspartate Aminotransferase 27 IU/L (17-59); BUN Creatinine Ratio 14.9 (6-22); Bilirubin Total 0.9 mg/dL (0.2-1.3); Blood Urea Nitrogen 13 mg/dL (9-20); C-Reactive Protein Quant < 0.5 mg/dL (<1.0); Calcium 10.6 mg/dL (8.4-10.2); Carbon Dioxide 31 mmol/L (22-32); Chloride 94 mmol/L (98-107); Cholesterol 212 mg/dL (140-199); Estimated Glomerular Filt Rate > 60 mL/min (>60); Globulin 3.2 g/dL (1.7-4.1); Glucose 99 mg/dL (80-110); HDL Cholesterol 78 mg/dL (40-60); HEMOLYSIS < 15 (0-50); LDL Cholesterol Calculated 123 mg/dL (<100); Potassium 3.7 mmol/L (3.4-5.1); Sodium 133 mmol/L (137-145); Total Protein 7.6 g/dL (6.3-8.2); Triglycerides 54 mg/dL (35-150)
[2023-05-21 11:48] LABS: TSH w/ Reflex to FT4 3.29 uIU/mL (0.47-4.68)
== END ==
PROVIDERS: PCP Internal Medicine; Referring Provider Internal Medicine; Visit Provider Internal Medicine
DX: C81.90 Hodgkin lymphoma, unspecified, unspecified site (principal); E78.5 Hyperlipidemia, unspecified; I10 Essential (primary) hypertension; R73.9 Hyperglycemia, unspecified
CPT/HCPCS: 36415; 80053; 80061; 84443; 85025; 85651; 86140

== ENCOUNTER 2023-08-28 07:50 | Day surgery (SDC) | payer MEDICARE, OTHER, SELFPAY ==
[2023-04-22 15:59] VITALS: BMI 29.7
--- NOTE | 2023-08-28 | PATH_ITS ---
[facility] Accession Number: [id number] No. of containers..02 Tissue . 01 Material submitted: . PART A: colon - DESCENDING POLYP PART B: rectum - RECTAL POLYP . 01 Diagnosis: A. Descending Colon, Biopsy: Tubular adenoma. Negative for high-grade dysplasia and malignancy. . B. Rectum, Biopsy: Tubular adenoma. Negative for high-grade dysplasia and malignancy. MRV 09/05/2023 1359 Local . 01 Electronically signed: . Patience Briones MD, Pathologist NPI- [id number] . 01 Gross description: . Part A: DESCENDING POLYP: Received in formalin is 1 fragment(s) of chaparro, soft tissue measuring 0.4 x 0.4 x 0.2 cm submitted entirely in 1 cassette(s) Part B: RECTAL POLYP: Received in formalin is 1 fragment(s) of chaparro, soft tissue measuring 0.7 x 0.5 x 0.4 cm submitted entirely in 1 cassette(s) /KYAW 08/29/2023 2222 Local . 01 Pathologist provided ICD-10: D12.6 . 01 CPT . 098455 Specimen Comment: A courtesy copy of this report has been sent to [phone] Performed at: 01 [facility] [address] [place] [address], [place], [place] [id number] MD Jhoan Watts MD Phone: [phone]
[2023-08-28 07:58] VITALS: BP 144/87; PULSE 91; RESP 16; TEMP 36.1; O2SAT 99; BMI 29.5
--- NOTE | 2023-08-28 08:19 | P.HP_ITS ---
History of Present Illness History of Present Illness Date Patient Seen: 08/28/23 Time Patient Seen: 08:19 Chief complaint: Screening Colonoscopy Narrative: tSephen is a 67-year-old man who is here for a colonoscopy. His last 1 was about 10 years ago and was normal. He has no family history of colon cancer. FORMERLY [facility], [facility] Medical History (Updated 08/28/23 @ 08:20 by Jamil Terry MD) Obstructive lung disease Eczema Right inguinal hernia Right hydrocele Erectile dysfunction Spermatocele of epididymis, multiple Hydrocele, bilateral Depressive disorder, not elsewhere classified (02/23/13) Hodgkins disease Hyperglycemia (07/24/11) Vision disorder Hearing loss Vertigo (~2016) Hypertension Surgical History History of hydrocelectomy (08/25/20) History of removal of Port-a-Cath (2010) Anesthesia History of hernia repair (~2010) Surgical procedure planned (~2010) Family History Father Dementia History of heart disease Stroke Mother Hypertension Social History household members: spouse Smoking Status: Former smoker alcohol intake: current Meds Home Medications and Allergies Home Medications Medication Instructions Recorded Confirmed Type clobetasol 0.05 % scalp solution 1 applictn topical BID 05/15/20 08/28/23 History cholecalciferol (vitamin D3) 100 100 mcg PO DAILY 01/10/21 08/28/23 History mcg (4,000 unit) capsule Vitamin B12 1 tab PO DAILY 04/22/23 08/28/23 History albuterol sulfate 90 mcg/actuation 2 puff inhalation QID #8.5 grams 05/23/23 08/28/23 Rx aerosol inhaler olmesartan 40 mg tablet 40 mg PO DAILY #90 tabs 05/30/23 08/28/23 Rx amlodipine 5 mg tablet (Norvasc) 5 mg PO DAILY #90 tabs 06/02/23 08/28/23 Rx chlorthalidone 25 mg tablet 25 mg PO DAILY #90 tabs 06/02/23 08/22/23 Rx Allergies Allergy/AdvReac Type Severity Reaction Status Date / Time No Known Drug Allergies Allergy Verified 08/28/23 08:04 Exam Const General: healthy appearing Resp Effort & Inspection: normal respiratory effort Assessment & Plan Assessment and plan (1) Colon cancer screening: Status: Acute Plan Stephen is a 67-year-old man who is average risk for colon cancer. He is due for a colonoscopy. We reviewed the risks and benefits and he would like to proceed.
[2023-08-28] MEDS: LACTATED RINGERS 1,000 ML 42 ML IV (08:21)
--- NOTE | 2023-08-28 09:21 | PM.HP.1 ---
History of Present Illness History of Present Illness Chief complaint: Screening Colonoscopy Narrative: Stephen is a 67-year-old man who is here for a colonoscopy. His last 1 was about 10 years ago and was normal. He has no family history of colon cancer. FORMERLY [facility] Medical History (Updated 08/28/23 @ 08:20 by Jamil Terry MD) Obstructive lung disease Eczema Right inguinal hernia Right hydrocele Erectile dysfunction Spermatocele of epididymis, multiple Hydrocele, bilateral Depressive disorder, not elsewhere classified (02/23/13) Hodgkins disease Hyperglycemia (07/24/11) Vision disorder Hearing loss Vertigo (~2016) Hypertension Surgical History History of hydrocelectomy (08/25/20) History of removal of Port-a-Cath (2010) Anesthesia History of hernia repair (~2010) Surgical procedure planned (~2010) Family History Father Dementia History of heart disease Stroke Mother Hypertension Social History household members: spouse Smoking Status: Former smoker alcohol intake: current Meds Home Medications and Allergies Home Medications Medication Instructions Recorded Confirmed Type clobetasol 0.05 % scalp solution 1 applictn topical BID 05/15/20 08/28/23 History cholecalciferol (vitamin D3) 100 100 mcg PO DAILY 01/10/21 08/28/23 History mcg (4,000 unit) capsule Vitamin B12 1 tab PO DAILY 04/22/23 08/28/23 History albuterol sulfate 90 mcg/actuation 2 puff inhalation QID #8.5 grams 05/23/23 08/28/23 Rx aerosol inhaler olmesartan 40 mg tablet 40 mg PO DAILY #90 tabs 05/30/23 08/28/23 Rx amlodipine 5 mg tablet (Norvasc) 5 mg PO DAILY #90 tabs 06/02/23 08/28/23 Rx chlorthalidone 25 mg tablet 25 mg PO DAILY #90 tabs 06/02/23 08/22/23 Rx Allergies Allergy/AdvReac Type Severity Reaction Status Date / Time No Known Drug Allergies Allergy Verified 08/28/23 08:04 Exam Vital Signs (past 8 hours): - 08/28/23 07:58 Temperature 97 F L Pulse Rate 91 H Respiratory Rate 16 Blood Pressure 144/87 H Pulse Oximetry 99 Oxygen Delivery Method Room Air Oxygen Delivery Method Room Air Assessment & Plan Assessment and plan (1) Colon cancer screening: Status: Acute Plan We reviewed the risks and benefits of colonoscopy for colon cancer screening and he would like to proceed
--- NOTE | 2023-08-28 09:22 | P.OP.COLON_ITS ---
Operative Date/Time/Diagnoses Date of procedure: 08/28/23 Time of procedure: 09:22 Pre-op diagnosis: Colon cancer screening Post-op diagnosis: same Procedure & Clinicians Study performed: Colonoscopy Same procedure as scheduled: Yes Surgeon: Jamil Terry Procedure Notes Procedure in detail: Surgeon: Jamil Terry MD Anesthesia: Kvng Hernandez CRNA Procedure: The patient was brought to the endoscopy suite, placed in left lateral decubitus position. The patient was connected to monitoring devices. A time-out was performed. Sedation was administered. Once the patient was adequately sedated, a digital rectal exam was performed and was normal. The scope was then inserted and advanced to the cecum where the appendiceal orifice was identified and photographed. The scope was then slowly withdrawn over greater than 6 minutes. The mucosa was thoroughly inspected. There were sca ttered diverticula. There was a 5 mm polyp in the descending colon removed with a cold snare. There was a 6 mm polyp in the mid rectum removed with a cold snare. The scope was retroflexed in the rectum. No other abnormalities were noted. The scope was straightened and removed. The patient was awakened and brought to recovery. Scope withdrawal time: 10 minutes Sedation time: 23 minutes EBL: 3 mL Findings: Diverticulosis, 5 mm polyp in the descending colon and 6 mm polyp in the rectum Post-procedure Disposition: PACU
[2023-08-28 09:25] VITALS: BP 133/86; PULSE 73; RESP 16; TEMP 36.2; O2SAT 98
[2023-08-28 09:30] VITALS: BP 112/75; PULSE 74; RESP 16; O2SAT 99
== END 2023-08-28 10:00 | disposition home or self-care (01) ==
PROVIDERS: PCP Internal Medicine; Referring Provider Surgery; Visit Provider Surgery
PROC: 0DJD8ZZ Inspection of Lower Intestinal Tract, Via Natural or Artificial Opening Endoscopic (ICD-10-PCS; CPT 45378; principal; 2023-08-28 08:45)
DX: Z12.11 Encounter for screening for malignant neoplasm of colon (principal); K57.30 Diverticulosis of large intestine without perforation or abscess without bleeding; D12.4 Benign neoplasm of descending colon; D12.8 Benign neoplasm of rectum
CPT/HCPCS: 45385; J2704

== ENCOUNTER → 2023-12-08 11:08 | Outpatient (CLI) | payer MEDICARE, OTHER, SELFPAY ==
[2023-04-22 15:59] VITALS: BMI 29.7
[2023-12-11 11:36] LABS: QuantiFERON Mitogen Value >10.00 IU/mL (.); QuantiFERON Nil Value 0.07 IU/mL (.); QuantiFERON TB Gold Plus Negative (Negative); QuantiFERON TB1 Ag Value 0.08 IU/mL (.); QuantiFERON TB2 Ag Value 0.11 IU/mL (.)
== END ==
PROVIDERS: PCP Internal Medicine; Referring Provider Dermatology; Visit Provider Dermatology
DX: L20.89 Other atopic dermatitis (principal)
CPT/HCPCS: 36415; 86480

== ENCOUNTER → 2024-02-06 10:51 | Outpatient (CLI) | payer MEDICARE, OTHER, SELFPAY ==
[2023-04-22 15:59] VITALS: BMI 29.7
--- NOTE | 2024-02-06 10:53 | DI.RAD.S_ITS ---
PROCEDURE: XR CHEST 2V INDICATIONS: dyspsnea TECHNIQUE: 2 views of the chest were acquired. COMPARISON: [facility], , XR CHEST 2V, 04/22/2023, 16:50. [facility], CR, XR CHEST 2V, 05/23/2020, 10:27. FINDINGS: Surgical changes and devices: None. Lungs and pleura: Lungs are clear. No pleural effusions or pneumothorax. Mediastinum: Mediastinal contours are normal. Heart size is normal. Bones and chest wall: No suspicious bony abnormalities. Soft tissues appear unremarkable. IMPRESSION: No acute cardiopulmonary abnormality is seen. Approved by: Nima Ji M.D. on 02/06/2024 at 20:58
== END ==
PROVIDERS: PCP Internal Medicine; Referring Provider Internal Medicine; Visit Provider Internal Medicine
DX: J44.9 Chronic obstructive pulmonary disease, unspecified (principal); R06.00 Dyspnea, unspecified
CPT/HCPCS: 71046

== ENCOUNTER → 2024-02-18 06:58 | Outpatient (CLI) | payer MEDICARE, OTHER, SELFPAY ==
[2023-04-22 15:59] VITALS: BMI 29.7
--- NOTE | 2024-02-18 07:00 | DI.ECHO.S_ITS ---
[facility]+ [facility] : : [id number] : : [place] : : [id number] : : Phone: [phone] Echocardiogram Report + + :Name: ALANA RON Study Date: 02/18/2024 Height: 74 in : :[facility] ReadingLocation: Weight: 230 lb : : Gender: Male BSA: 2.3 m2 : :: 1955 Age: 68 yrs BP: 158/96 mmHg: :Reason For Study: DYSPNEA : :Ordering Physician: MAURICE, : :EDWARD Rdz Performed By: Macey Guerrero : :Referring: EDWARD RICHARDS : + + Interpretation Summary 1) Mildly increased left ventricular thickness (concentric) with normal size, normal wall motion, and normal systolic function (EF 60-65%). 2) Normal right ventricular size and function. 3) No significant valvular abnormalities. 4) The aortic root is moderately dilated at 4.6cm. The ascending aorta is moderately enlarged at 4.4cm. 5) Compared to the Echo done 05/25/2012, no significant change. Procedure: A two-dimensional transthoracic echocardiogram with color flow and Doppler was performed. The study quality was technically adequate. Comparison is made with the echocardiogram of 05/25/2012. A contrast injection of Definity was performed to improve assessment of LV function. The patient was in sinus rhythm with heart rates between 66-74 bpm during the exam. Left Ventricle: The left ventricle is normal in size. There is mild concentric left ventricular hypertrophy. The ejection fraction is estimated to be 60-65%. Left ventricular systolic function appears normal without focal wall motion abnormalities. Right Ventricle: The right ventricle is normal in size and function. Atria: The left atrial size is normal. Right atrial size is normal. There is no Doppler evidence for an interatrial shunt. Mitral Valve: The mitral valve leaflets are slightly calcified. There is trace mitral regurgitation. Aortic Valve: The aortic valve opens well. The aortic valve is trileaflet. There is no aortic valve stenosis. There is trace aortic regurgitation. Tricuspid Valve: The tricuspid valve is normal in structure and function. There is mild tricuspid regurgitation. The right ventricular systolic pressure is estimated to be at least 31 mmHg based on an estimated right atrial pressure of 3 mm Hg. Pulmonic Valve: The pulmonic valve leaflets are thin and pliable; valve motion is normal. There is no pulmonic valvular regurgitation. Great Vessels: The aortic root is moderately dilated. The ascending aorta is moderately enlarged. The IVC is of normal diameter and collapses greater than 50% with a sniff. This suggests a low right atrial pressure of 3 mm Hg. Pericardium/ Pleura There is no pericardial effusion. There is no pleural effusion. MMode/2D Measurements & Calculations LVIDd: 4.5 cm LVOT diam: 2.2 cm LVIDs: 3.0 cm Ao root diam: 4.6 cm FS: 32.9 % asc Aorta Diam: 4.4 cm IVSd: 1.1 cm LVPWd: 1.1 cm LV lee. diameter/BSA (cm/m^2): 2.0 LV sys. diameter/BSA (cm/m^2): 1.3 LA A2 area: 22.8 cm2 RA long axis: 5.0 cm LA A4 area: 15.7 cm2 RA area: 15.2 cm2 LA length (vol): 5.2 cm RA vol: 39.4 ml LA vol: 58.5 ml RA : 17.1 ml/m2 LA vol index: 25.4 ml/m2 IVC diam: 1.4 cm RVD1 (basal): 3.6 cm RVD2 (mid): 3.2 cm TAPSE: 2.3 cm Doppler Measurements & Calculations Ao V2 max: 110.5 cm/sec LVOT Max Richard: 91.6 cm/sec Ao V2 mean: 82.3 cm/sec LV V1 max P.4 mmHg Ao max P.9 mmHg LV V1 VTI: 22.1 cm Ao mean P.9 mmHg MELVIN(I,D): 3.0 cm2 Ao V2 VTI: 27.6 cm MELVIN(V,D): 3.1 cm2 sev ratio: 0.80 MELVIN indexed to BSA (cm^2/m^2): 1.3 MV E max richard: 58.2 cm/sec TR max richard: 263.0 cm/sec MV A max richard: 91.5 cm/sec TR max P.7 mmHg MV E/A: 0.64 PA V2 max: 81.7 cm/sec Med Peak E' Richard: 5.1 cm/sec PA V2 mean: 58.6 cm/sec E/E' med: 11.3 PA mean P.5 mmHg Lat Peak E' Richard: 8.0 cm/sec PA pr(Accel): 48.2 mmHg E/E' lat: 7.2 E/e' average: 9.3 MV dec time: 0.20 sec SV(LVOT): 82.9 ml Reading Physician:09:42 AM
[2024-02-18 09:08] LABS: Add Manual Diff / Slide Review NO; Basophils Absolute Auto 0 /uL (0-100); Basophils Percent Auto 0.8 % (0-2); Eosinophils Absolute Auto 100 /uL (0-450); Eosinophils Percent Auto 1.2 % (2-4); Hematocrit 39.1 % (41-53); Hemoglobin 13.7 g/dL (13.5-17.5); Lymphocytes Absolute Auto 1800 /uL (1100-4500); Lymphocytes Percent Auto 40.4 % (25-40); Mean Corpuscular Hemoglobin 33.6 PG (26-34); Mean Corpuscular Volume 96.1 fL (80-100); Monocytes Absolute Auto 600 /uL (0-900); Monocytes Percent Auto 13.3 % (3-14); Neutrophils Absolute Auto 1900 /uL (1500-7000); Neutrophils Percent Auto 44.3 % (50-75); Platelet Count 296 X10^3/uL (150-400); Red Blood Cell Count 4.07 X10^6/uL (4.5-5.9); Red Cell Distribution Width 14.1 % (11.6-14.8); White Blood Cell Count 4.4 X10^3/uL (4.5-11.0)
[2024-02-18 09:26] LABS: Alanine Aminotransferase 25 IU/L (<50); Albumin 4.1 g/dL (3.5-5.0); Alkaline Phosphatase 65 U/L (38-126); Aspartate Aminotransferase 39 IU/L (17-59); BUN Creatinine Ratio 18.1 (6-22); Bilirubin Total 1.1 mg/dL (0.2-1.3); Blood Urea Nitrogen 15 mg/dL (9-20); Calcium 10.4 mg/dL (8.4-10.2); Carbon Dioxide 31 mmol/L (22-32); Chloride 95 mmol/L (98-107); Cholesterol 239 mg/dL (140-199); Estimated Glomerular Filt Rate > 60 mL/min (>60); Globulin 4.1 g/dL (1.7-4.1); Glucose 100 mg/dL (80-110); Potassium 3.6 mmol/L (3.4-5.1); Sodium 132 mmol/L (137-145); Total Protein 8.2 g/dL (6.3-8.2); Triglycerides 59 mg/dL (35-150)
[2024-02-18 09:35] LABS: HDL Cholesterol 120 mg/dL (40-60); HEMOLYSIS 51 (0-50); LDL Cholesterol Calculated 107 mg/dL (<100)
== END ==
LOC: ECHO 06:59
PROVIDERS: PCP Internal Medicine; Referring Provider Internal Medicine; Visit Provider Internal Medicine
DX: I77.810 Thoracic aortic ectasia (principal); I77.89 Other specified disorders of arteries and arterioles; I07.1 Rheumatic tricuspid insufficiency; J44.9 Chronic obstructive pulmonary disease, unspecified; R06.00 Dyspnea, unspecified; L20.89 Other atopic dermatitis
CPT/HCPCS: 80053; 80061; 85025; C8929; Q9957

== ENCOUNTER → 2024-06-11 17:36 | Outpatient (CLI) | payer MEDICARE, OTHER, SELFPAY ==
[2023-04-22 15:59] VITALS: BMI 29.7
== END ==
PROVIDERS: PCP Internal Medicine; Visit Provider Physician Assistant Medical
DX: J02.9 Acute pharyngitis, unspecified (principal)
CPT/HCPCS: 87070

== ENCOUNTER → 2025-06-21 14:56 | Outpatient (CLI) | payer MEDICARE, OTHER, SELFPAY ==
[2023-04-22 15:59] VITALS: BMI 29.7
[2025-06-21 16:43] LABS: Hemoglobin A1C% w Est Avg Glu 5.2 % (4.0-6.0)
[2025-06-21 17:23] LABS: TSH w/ Reflex to FT4 3.72 uIU/mL (0.47-4.68)
[2025-06-21 17:41] LABS: Vitamin B12 346 pg/mL (239-931)
[2025-06-23 13:11] LABS: Albumin 4.5 g/dL (2.9-4.4); Gamma Globulin 1.0 g/dL (0.4-1.8)
[2025-06-30 00:36] LABS: Gamma-Tocopherol 1.4 mg/L (0.5-4.9)
== END ==
PROVIDERS: PCP Internal Medicine; Referring Provider Student in an Organized Health Care Education/Training Program; Visit Provider Student in an Organized Health Care Education/Training Program
DX: R27.0 Ataxia, unspecified (principal)
CPT/HCPCS: 36415; 82390; 82525; 82607; 83036; 83921; 84155; 84165; 84443; 84446

== ENCOUNTER → 2025-06-23 07:48 | Outpatient (CLI) | payer MEDICARE, OTHER, SELFPAY ==
[2023-04-22 15:59] VITALS: BMI 29.7
--- NOTE | 2025-06-23 07:51 | DI.CT.S_ITS ---
PROCEDURE: CT ANGIO HEAD AND NECK INDICATIONS: possible stroke TECHNIQUE: After the administration of intravenous contrast, 1 mm thick sections acquired from the aortic arch through the [place] of [place]. 3-dimensional riwcawr-fwxkhpldy-agsyeyxtel (MIP) and/or volume rendering reformats were acquired of the central intracranial vasculature and neck separately. For radiation dose reduction, the following was used: automated exposure control, adjustment of mA and/or kV according to patient size. COMPARISON: Outside Facility, MR, MR HEAD/BRAIN WO/W CON, 06/06/2025, 14:53. FINDINGS: Image quality: Diagnostic. Cerebral CT Angiogram: Internal carotid arteries: No acute findings. Intracranial ICA are patent with no significant stenosis. No occlusion. No aneurysm. Anterior cerebral arteries: Unremarkable. No significant stenosis. No occlusion. No aneurysm. Middle cerebral arteries: Unremarkable. No significant stenosis. No occlusion. No aneurysm. Posterior cerebral arteries: Unremarkable. No significant stenosis. No occlusion. No aneurysm. Basilar artery: Unremarkable. No significant stenosis. No occlusion. No aneurysm. Vertebral arteries: Slight left vertebral artery dominance. Dural venous sinuses: Unremarkable given phase of enhancement. Other: Arterial phase appearance of the brain parenchyma is unremarkable. Neck CT Angiogram: Internal carotid arteries: Unremarkable. No significant stenosis. No dissection or occlusion. Common carotid arteries: Unremarkable. No significant stenosis. No dissection or occlusion. External carotid arteries: Unremarkable. No occlusion. Vertebral arteries: Unremarkable. No significant stenosis. No dissection or occlusion. Aortic Arch and Mediastinum: Partially visualized aortic arch unremarkable without evidence of aneurysm. Origins of the great vessels unremarkable. Other: Arterial phase soft tissues of the neck and chest are unremarkable. IMPRESSION: No significant intracranial arterial abnormality is seen. No significant abnormality is seen within the arteries of the neck. Any quantitative measurements of stenosis were performed using NASCET criteria. Dictated by: Annabella Ryder M.D. on 06/24/2025 at 14:11 Approved by: Annabella Ryder M.D. on 06/24/2025 at 14:15
[2025-06-23 08:18] LABS: Estimated Glomerular Filt Rate > 60 mL/min (>60)
--- NOTE | 2025-06-23 09:29 | DI.ECHO.S_ITS ---
:Name: ALANA RON? Study Date: 06/23/2025? Height: 74 in? : :Hospital ?ReadingLocation:? Weight: 229 lb : : ?Gender: Male?BSA: 2.3 m2??? : :: 1955? Age: 69 yrs? BP: 154/89 mmHg: :Reason For Study: CVA??? :Ordering Physician: QUYEN RIGGS :Performed By: [place]?? :Referring: QUYEN RIGGS? + + Interpretation Summary Normal sinus rhythm. Normal LV sizeand mildly increased wall thickness. Normal wall motion and LV systolic function. Ejection fraction 60-65%. Moderately dilated right ventricle. Otherwise normal chamber sizes. Aortic sclerosis without stenosis. Thereis mild-moderate aortic regurgitation. Otherwise no significant valvular abnormalities. Estimated PA systolic pressure is 34 mm Hg assuming RA pressure of 3 mm Hg. Severely dilated aorticroot measuring 4.9 cm in diameter. Moderately dilated ascending aortameasuring 4.6 cm in diameter. Compared to prior echo obtained February 18, 2024, RV dilation progressed. Basal diameter increased from 3.6 cm to 5 cm. Aortic root diameter increased from 4.6 to 4.9 cm. Recommend cardiology consultation. Procedure: ?A two-dimensional transthoracic echocardiogram with color flow and Doppler was performed. The study quality was technically adequate. Comparison is madewith the echocardiogram of 02/18/2024. The patient was in normal sinus rhythm during the exam. Left Ventricle: ?The left ventricle is normal in size. Left ventricular wall thickness is mildly increased. There is no ventricular septaldefect visualized. The ejection fraction is estimated to be 60-65%. There are no focal wall motion abnormalities. Diastolic parameters suggest probable normal left ventricular diastolic functionand normal filling pressures. Right Ventricle: ?The right ventricle is moderately dilated. The right ventricular systolic functionis normal. Atria: ?The left atrial size is normal. Borderline right atrial enlargement. There is no Doppler evidence for an interatrial shunt. Mitral Valve: ?Thereis mild mitral annularcalcification. The mitral valve leaflets are mildly calcified. There is no mitral regurgitation noted. Aortic Valve:? ?The aortic valve is trileaflet. The aortic valve opens well. There is mild aortic regurgitation. Tricuspid Valve:? ?The tricuspid valve leaflets are thin and pliable. Thereis mild tricuspid regurgitation. The right ventricular systolic pressureis estimated to be at least 34 mmHg based on an estimated right atrial pressure of 3 mm Hg. Pulmonic Valve: ?The pulmonic valveis not well visualized. There is no pulmonic valvular regurgitation. Great Vessels:? ?The aortic root is severely dilated. The ascending aortais moderately enlarged. The pulmonary artery is not well visualized, but is probably normal size. Pericardium/ Pleura ?Thereis no pericardial effusion. There is no pleural effusion. MMode/2D Measurements & Calculations LVIDd: 4.4 cm?LVOT diam: 2.4 cm LVIDs: 2.7 cm?Ao root diam: 4.9 cm FS: 39.3 %? asc Aorta Diam: 4.6 cm EPSS: 1.0 cm IVSd: 1.2 cm LVPWd: 1.1 cm LV lee. diameter/BSA (cm/m^2): 1.9 LV sys. diameter/BSA (cm/m^2):1.2 LA A2 area: 17.9 cm2?RA long axis: 5.2 cm LA A4 area: 16.5 cm2?RA area: 19.2 cm2 LA length (vol): 5.5 cm? RA vol: 59.9 ml LA vol: 45.3 ml? RA : 26.0 ml/m2 LA vol index: 19.7 ml/m2?IVC diam: 1.6 cm RVD1 (basal): 5.0 cm RVD2 (mid): 3.1 cm TAPSE: 3.2 cm Doppler Measurements & Calculations Ao V2 max: 97.0 cm/sec? LVOT Max Richard: 85.1 cm/sec Ao V2 mean: 70.7 cm/sec?LV V1 max P.9 mmHg Ao max P.8 mmHg?LV V1 VTI: 22.1 cm Ao mean P.2 mmHg? MELVIN(I,D): 4.3 cm2 Ao V2 VTI: 22.3 cm?MELVIN(V,D): 3.8 cm2 sev ratio: 0.99 MELVIN indexed to BSA (cm^2/m^2): 1.9 MV E max richard: 69.8 cm/sec?TR max richard: 277.5 cm/sec MV A max richard: 59.7 cm/sec?TR max P.8 mmHg MV E/A: 1.2? PA V2 max: 85.4 cm/sec Med Peak E' Richard: 5.1 cm/sec?PA V2 mean: 62.7 cm/sec E/E' med: 13.7? PA mean P.7 mmHg Lat Peak E' Richard: 5.3 cm/sec?PA pr(Accel): 29.3 mmHg E/E' lat: 13.1 E/e' average:13.4 MV dec time: 0.21 sec SV(LVOT): 96.1 ml Reading Physician:
== END ==
LOC: ECHO 07:50
PROVIDERS: PCP Internal Medicine; Referring Provider Student in an Organized Health Care Education/Training Program; Visit Provider Student in an Organized Health Care Education/Training Program
DX: I63.9 Cerebral infarction, unspecified (principal); I08.3 Combined rheumatic disorders of mitral, aortic and tricuspid valves; I77.810 Thoracic aortic ectasia; I77.89 Other specified disorders of arteries and arterioles
CPT/HCPCS: 36415; 70496; 70498; 82565; 93306; Q9967

== ENCOUNTER → 2025-09-13 11:24 | Outpatient (CLI) | payer MEDICARE, OTHER, SELFPAY ==
[2023-04-22 15:59] VITALS: BMI 29.7
[2025-09-13 12:06] LABS: Blood Urea Nitrogen 15 mg/dL (9-20); Calcium 11.1 mg/dL (8.4-10.2); Carbon Dioxide 28 mmol/L (22-32); Chloride 102 mmol/L (98-107); Estimated Glomerular Filt Rate > 60 mL/min (>60); Glucose 116 mg/dL (70-99); HEMOLYSIS < 15 (0-50); Potassium 4.6 mmol/L (3.4-5.1); Sodium 137 mmol/L (137-145)
== END ==
PROVIDERS: PCP Internal Medicine; Referring Provider Internal Medicine; Visit Provider Internal Medicine
DX: E21.3 Hyperparathyroidism, unspecified (principal)
CPT/HCPCS: 36415; 80048